=== PATIENT | female | born 1965 | race Caucasian/White ===

== ENCOUNTER 2021-01-08 17:21 | Outpatient (CLI) | payer BC, SELFPAY ==
--- NOTE | ~2021-01-08 | XR_ITS ---
EXAMINATION: XR hip BI wo pelvis DATE: 01/08/2021 18:07 INDICATION: Multiple joint pain and inflammation. TECHNIQUE: Anteroposterior and frog-leg lateral views of the left hip and anteroposterior and frog-le g lateral views of the right hip were obtained. COMPARISON: None. FINDINGS: Alignment is normal. No fracture or suspected avascular necrosis. Mild osteoarthritis at the bilatera l hips with mild superolateral predominant nonuniform joint space narrowing. There is also mild left sacroiliac osteoarthritis. Soft tissues are unremarkable. IMPRESSION: 1. 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 Reviewed, dictated and finalized at location A. ESTATE DEVELOPMENT MANAGER
--- NOTE | ~2021-01-08 | XR_ITS ---
EXAMINATION: XR shoulder RT min 2V DATE: 01/08/2021 18:07 INDICATION: Multiple joint pain. Inflammation. TECHNIQUE: AP and axillary views of the right shoulder were obtained. COMPARISON: None FINDINGS: Normal alignment. No fracture. Glenohumeral joint is normal. Mild right acromioclavicular osteoarthr itis. Soft tissues are unremarkable. Linear discoid atelectasis at the left lung base. IMPRESSION: Mild right acromioclavicular osteoarthritis. Reviewed, dictated and finalized at location A. ER HAND
--- NOTE | ~2021-01-08 | XR_ITS ---
EXAMINATION: XR shoulder LT min 2V DATE: 01/08/2021 18:07 INDICATION: Multiple joint pain. Inflammation. TECHNIQUE: AP and axillary views of the left shoulder were obtained. COMPARISON: None FINDINGS: Normal alignment. No fracture. Glenohumeral joint is normal. Acromioclavicular joint is normal. Soft tissues are unremarkable. Visualized portions of the lungs are clear. IMPRESSION: Negative left shoulder radiographs. Reviewed, dictated and finalized at location A. CATESSEN MANAGER
--- NOTE | ~2021-01-08 | XR_ITS ---
EXAMINATION: HAND-MARI ARTHRITIS 3+VIEWS DATE: 01/08/2021 18:07 INDICATION: Multiple joint pain and inflammation at the bilateral hands and wrists TECHNIQUE: 1. Posteroanterior, lateral, and oblique views of the left and of the right hands as well as a ballca tchers view of both hands were obtained. 2. PA and lateral views of the left wrist were obtained. 3. PA and lateral views of the right wrist were obtained. COMPARISON: None. FINDINGS: Right hand and wrist: 2 mm ulnar positive variance. Alignment is otherwise normal. No fracture. Subtle concavity and subcor tical lucency at the ulnar aspect of the base of the lunate which in the presence of ulnar positive v ariance suggests ulnocarpal impaction. Joint spaces are normal. No erosions to suggest inflammatory a rthritis. Soft tissues are unremarkable. Left hand and wrist: 1 mm ulnar positive variance with similar concavity along the ulnar side of the base of the lunate al so suggestive of ulnocarpal impaction. Alignment is otherwise normal. No fracture. Joint spaces are n ormal. No erosions to suggest an inflammatory arthritis. Soft tissues are unremarkable. IMPRESSION: 1. Bilateral ulnar positive variance and irregularity at the ulnar side of the base of the lunate is consistent with bilateral ulnocarpal impaction. Reviewed, dictated and finalized at location A. CLOCKS REPAIRER IMPRESSION: 1. Bilateral ulnar positive variance and irregularity at the ulnar side of the base of the lunate is consistent with bilateral ulnocarpal impaction. IMPRESSION: 1. Bilateral ulnar positive variance and irregularity at the ulnar side of the base of the lunate is consistent with bilateral ulnocarpal impaction.
--- NOTE | ~2021-01-08 | XR_ITS ---
EXAMINATION: XR ankle LT 2V, XR foot LT 2V, XR foot RT 2V, XR ankle RT 2V DATE: 01/08/2021 INDICATION: Multiple joint pain and inflammation at the bilateral feet and ankles TECHNIQUE: 1. Anteroposterior and lateral view of the left ankle were obtained. 2. Dorsoplantar and lateral views of the left foot were obtained. 3. Anteroposterior and lateral view of the right ankle were obtained. 4. Dorsoplantar and lateral views of the right foot were obtained. COMPARISON: None. FINDINGS: Left foot and ankle: Alignment of the left foot and ankle is normal. No fracture or osteochondral lesion. Moderate-sized p lantar calcaneal spur. Mild osteoarthritis at the first metatarsophalangeal joint. Joint spaces are o therwise unremarkable. No erosions to suggest an inflammatory arthritis. No ankle joint effusion. The soft tissues are unremarkable. Right foot and ankle: Alignment of the right foot and ankle is normal. No fracture or osteochondral lesion. Moderate-sized plantar calcaneal spur. Mild osteoarthritis at the right first metatarsophalangeal joint. Joint space s are otherwise unremarkable.. No erosions to suggest inflammatory arthritis. No ankle joint effusion . The soft tissues are unremarkable. IMPRESSION: 1. Mild osteoarthritis at the bilateral first metatarsophalangeal joints. 2. Moderate-sized bilateral plantar calcaneal spurs.. Reviewed, dictated and finalized at location A. ER INSTALLATION MECHANIC IMPRESSION: 1. Mild osteoarthritis at the bilateral first metatarsophalangeal joints. 2. Moderate-sized bilateral plantar calcaneal spurs.. IMPRESSION: 1. Mild osteoarthritis at the bilateral first metatarsophalangeal joints. 2. Moderate-sized bilateral plantar calcaneal spurs.. IMPRESSION: 1. Mild osteoarthritis at the bilateral first metatarsophalangeal joints. 2. Moderate-sized bilateral plantar calcaneal spurs..
== END 2021-01-08 17:22 | disposition home or self-care (01) ==
LOC: ANHIMG 17:27
PROVIDERS: PCP Nurse Practitioner Family; Visit Provider Internal Medicine Rheumatology
DX: M25.50 Pain in unspecified joint (principal); M89.8X0 Other specified disorders of bone, multiple sites; M15.9 Polyosteoarthritis, unspecified
CPT/HCPCS: 73030; 73100; 73130; 73521; 73600; 73620

== ENCOUNTER 2023-08-05 11:30 | Outpatient (CLI) | payer BC, MEDICARE, SELFPAY ==
--- NOTE | ~2023-08-05 | XR_ITS ---
Supine and upright views of the abdomen Clinical history: Other specified diseases aerodigestive tract Findings: Bowel gas pattern is nonspecific. No evidence for obstruction or free air. Focal ovoid calc ification the right upper quadrant present, nonspecific. Osseous structures are intact. Impression: Focal ovoid calcification right upper quadrant, nonspecific. This is significantly superior to the re nal shadow. Reviewed, dictated and finalized at location . Impression: Focal ovoid calcification right upper quadrant, nonspecific. This is significan tly superior to the renal shadow.
== END 2023-08-05 11:31 | disposition home or self-care (01) ==
LOC: ANHIMG 11:38
PROVIDERS: PCP Family Medicine; Visit Provider Nurse Practitioner Family
DX: K92.89 Other specified diseases of the digestive system (principal); K59.00 Constipation, unspecified
CPT/HCPCS: 74018